=== PATIENT | male | born 1945 | race Caucasian/White ===

== ENCOUNTER 2018-12-01 14:44 | Emergency (ER) | payer OTHER ==
[~2018-12-01] VITALS: Ht 195.6 cm; Wt 125.2 kg
[2018-12-01] MEDS ORDERED: SODIUM CHLORIDE 0.9% 1,000 ML IV ONE (16:22)
[2018-12-01] MEDS ORDERED: ASPirin 81 mg TAB PO ONE (16:30)
[2018-12-01 16:57] LABS: Basophils # (auto) 0.1 uL; Eosinophils # (auto) 0.1 uL; Eosinophils % (auto) 1.2 % (0.0-7.0); Hematocrit 37.4 % (41.0-53.0); Hemoglobin 12.1 g/dL (13.5-17.5); Lymphocytes # (auto) 0.7 uL; Lymphocytes % (auto) 12.7 % (10.0-50.0); Mean Corpuscular Hemoglobin 30.3 pg (28.0-32.0); Mean Corpuscular Hgb Conc. 32.5 g/dL (32.0-36.0); Mean Corpuscular Volume 93.4 fL (80.0-100.0); Monocytes # (auto) 0.5 uL; Monocytes % (auto) 8.8 % (0.0-12.0); Neutrophils # (auto) 4.3 uL; Neutrophils % (auto) 76.3 % (37.0-80.0); Nucleated Red Blood Cells % 0.1 %; Platelet Count (auto) 196 10^3/uL (140-450); Red Blood Cells 4.01 10^6/uL (4.5-5.90); Red Cell Distribution Width 14.6 % (11.8-14.3); White Blood Cell 5.7 10^3/uL (4.4-10.8)
[2018-12-01 17:11] LABS: Albumin 3.5 g/dL (3.4-5.0); Calcium 8.5 mg/dL (8.5-10.1); INR 2.56 (0.9-1.15); Partial Thromboplastin Time 39.6 sec (23.78-33.04); Potassium 4.1 mmol/L (3.5-5.1)
[2018-12-01 17:16] LABS: BUN/Creatinine Ratio 16.4; Bilirubin, Total 0.7 mg/dL (0.2-1.0); Total Protein 7.5 g/dL (6.4-8.2)
[2018-12-01 17:34] LABS: Urine Bacteria NONE SEEN /hpf (None Seen); Urine Blood Negative /uL (Negative); Urine Specific Gravity 1.013 (1.001-1.035); Urine WBC 1 /hpf (0 - 3)
[2018-12-01 20:55] VITALS: BP 165/71
[2018-12-01] MEDS ORDERED: LABETALOL HCL 5 MG/ML ML 20ML VIAL IV ONE (21:00)
== END 2018-12-01 21:05 | disposition short-term general hospital (02) ==
LOC: ER 14:44
DX: R55 Syncope and collapse (principal); R06.00 Dyspnea, unspecified; E11.21 Type 2 diabetes mellitus with diabetic nephropathy; R00.1 Bradycardia, unspecified; I48.91 Unspecified atrial fibrillation; I10 Essential (primary) hypertension; Z95.1 Presence of aortocoronary bypass graft; Z98.61 Coronary angioplasty status
CPT/HCPCS: 36415; 70450; 71046; 80053; 81001; 83735; 83880; 84443; 84484; 85025; 85379; 85610; 85730; 93005; 94761; 96361; 96374; 99285; J7030